=== PATIENT | male | born 1950 | race Two or more races ===

== ENCOUNTER 2021-03-15 10:22 | Emergency (ER) | payer OTHER ==
[~2021-03-15] VITALS: Ht 172.7 cm; Wt 76.2 kg
[2021-03-15 10:24] VITALS: BP 116/78
[2021-03-15 11:07] LABS: Basophils # (auto) 0.1 10 ^3/uL (0-0.2); Eosinophils # (auto) 0 10 ^3/uL (0-0.8); Hematocrit 38.3 % (41.0-53.0); Hemoglobin 12.7 g/dL (13.5-17.5); Lymphocytes # (auto) 1.4 10 ^3/uL (0.4-5.4); Mean Corpuscular Hgb Conc. 33.1 g/dL (32.0-36.0); Monocytes # (auto) 0.8 10 ^3/uL (0-1.3); Nucleated Red Blood Cells % 0.1 %
[2021-03-15 11:09] LABS: Basophils % (auto) 0.7 % (0.0-2.0); Eosinophils % (auto) 0.4 % (0.0-7.0); Lymphocytes % (auto) 14.5 % (10.0-50.0); Mean Corpuscular Hemoglobin 27.7 pg (28.0-32.0); Mean Corpuscular Volume 83.7 fL (80.0-100.0); Neutrophils # (auto) 7.4 10 ^3/uL (1.6-8.6); Neutrophils % (auto) 76.4 % (37.0-80.0); Red Blood Cells 4.57 10^6/uL (4.5-5.90); Red Cell Distribution Width 15.7 % (11.8-14.3); White Blood Cell 9.6 10^3/uL (4.4-10.8)
[2021-03-15 11:22] LABS: INR 1.11 (0.9-1.15); Partial Thromboplastin Time 32.8 sec (23.6-33.0)
[2021-03-15 11:28] LABS: Chloride 104 mmol/L (98-107); Potassium 3.6 mmol/L (3.5-5.1); Sodium 136 mmol/L (136-145)
[2021-03-15 11:37] LABS: Alanine Aminotransferase 15 U/L (16-61); Albumin 2.4 g/dL (3.4-5.0); Alkaline Phosphatase 76 U/L (45-117); Anion Gap 8 (5-15); Aspartate Aminotransferase 13 U/L (15-37); BUN/Creatinine Ratio 13.5; Bilirubin, Total 0.2 mg/dL (0.2-1.0); Blood Urea Nitrogen 10 mg/dL (7-18); Calcium 8.9 mg/dL (8.5-10.1); Carbon Dioxide 24 mmol/L (21-32); GFR African American 134 mL/min; GFR Non-African American 111 mL/min; Glucose 172 mg/dL (74-106); Total Protein 7.4 g/dL (6.4-8.2)
== END 2021-03-15 11:44 | disposition left against medical advice (07) ==
LOC: ER 10:22
DX: J90 Pleural effusion, not elsewhere classified (principal); C45.9 Mesothelioma, unspecified; Z53.29 Procedure and treatment not carried out because of patient's decision for other reasons
CPT/HCPCS: 36415; 71045; 80053; 83880; 84484; 85025; 85610; 85730